=== PATIENT | male | born 1970 | race African-American/Black ===

== ENCOUNTER 2017-09-26 12:31 | Inpatient (IN) | payer OTHER ==
[2017-09-26 13:45] VITALS: BMI 48.4
--- NOTE | 2017-09-26 16:37 | HP ---
Admission [facility] - [facility] Chief Complaint: ETOH, Cocaine Rehab Allergies/Adverse Reactions: Allergies Allergy/AdvReac Type Severity Reaction Status Date / Time No Known Allergies Allergy Verified 09/26/17 15:27 History of Present Illness: 47 yo male with hx of alcohol, IV heroin, nicotine and cocaine dependence is here seeking rehab. [facility] Lakshmi De Jesus on Methadone 150mg, last medicated today. PMHX: cataract bilateral, Scoliosis, HTN, STV, anxiety and depression. Denies suicidal / homicidal ideation. Attempted suicide last year September 27 after the of his father by hanging. Last detox [facility], Winter 2016. Reports no significant period of sobriety. Exam Limitations: No Limitations - Ebola screening Have you traveled outside of the country in the last 21 days: No (N) Have you had contact with anyone from an Ebola affected area: No Have you been sick,other than usual withdrawal symptoms: No Do you have a fever: No - Review of Systems Constitutional: Changes in sleep, Other (weight gain over 80 lbs, past 4-5 months) EENT: reports: See HPI, Cataracts (bilateral) Respiratory: reports: SOB with Exertion, Wheezing (at night) Cardiac: reports: No Symptoms Reported GI: reports: Diarrhea : reports: No Symptoms Reported Musculoskeletal: reports: Back Pain Integumentary: reports: No Symptoms Reported Neuro: reports: No Symptoms reported Endocrine: reports: Increased Thirst Hematology: reports: Other (Sickle Cell Trait) Psychiatric: reports: Orientated x3, Depressed Other Systems: Reviewed and Negative Patient History - Patient Medical History Hx Anemia: No Hx Asthma: No Hx Chronic Obstructive Pulmonary Disease (COPD): No Hx Cancer: No Hx Cardiac Disorders: Yes (SVT ) Hx Congestive Heart Failure: No Hx Hypertension: Yes (on meds) Hx Hypercholesterolemia: Yes (on meds) Hx Pacemaker: No HX Cerebrovascular Accident: No Hx Seizures: No Hx Dementia: No Hx Diabetes: No Hx Gastrointestinal Disorders: No Hx Liver Disease: No Hx Genitourinary Disorders: No Hx Sexually Transmitted Disorders: No Hx Renal Disease (ESRD): No Hx Thyroid Disease: No Hx Human Immunodeficiency Virus (HIV): No (negative, last tested one year ago ) Hx Hepatitis C: No Hx Depression: Yes Hx Suicide Attempt: Yes (September 27, 2016 by hanging ) Hx Bipolar Disorder: Yes Hx Schizophrenia: No - Patient Surgical History Past Surgical History: Yes Hx Neurologic Surgery: No Hx Cataract Extraction: Yes (bilateral catarats 2013) Hx Cardiac Surgery: No Hx Lung Surgery: No Hx Breast Surgery: No Hx Breast Biopsy: No Hx Abdominal Surgery: No Hx Appendectomy: No Hx Cholecystectomy: No Hx Genitourinary Surgery: No Hx Orthopedic Surgery: No Anesthesia Reaction: No - PPD History Previous Implant?: No Documented Results: Negative w/o proof PPD to be Administered?: Yes - Smoking Cessation Smoking history: Current every day smoker Have you smoked in the past 12 months: Yes Aproximately how many cigarettes per day: 20 Hx Chewing Tobacco Use: No Initiated information on smoking cessation: Yes 'Breaking Loose' booklet given: 09/26/17 - Substance & Tx. History Hx Alcohol Use: Yes Hx Substance Use: Yes Substance Use Type: Alcohol, Cocaine, Heroin Hx Substance Use Treatment: Yes (Last detox [facility], Winter 2016.) - Substances Abused Heroin Route: Inhalation Frequency: Daily Amount used: 10-15 BAGS DAILY Age of first use: 21 Date of Last Use: 09/26/17 Cocaine Route: Inhalation Frequency: 1-3 times last 30 days Amount used: $100 Age of first use: 21 Date of Last Use: 09/12/17 Alcohol Route: Oral Frequency: 3-6 times per week Amount used: 1 6 PACK OF BEER DAILY, 1 PINT OF VODKA Age of first use: 20 Date of Last Use: 09/26/17 Family Disease History - Family Disease History Family Disease History: Heart Disease: Father (, CHF), Other: Father, Mother (, HIV, Liver Cirrhosis ) Admission Physical Exam [facility] - Vital Signs Vital Signs: Vital Signs - 24 hr 09/26/17 13:35 Pulse Rate 90 Respiratory 18 Rate Blood Pressure 136/76 - Physical General Appearance: Yes: Nourished, Disheveled, Obese, Anxious HEENTM: Yes: EOMI, Hearing grossly Normal, Normal ENT Inspection, Normocephalic , Normal Voice, MELISSA, Pharynx Normal, Tm's normal Respiratory: Yes: Chest Non-Tender, Lungs Clear, Normal Breath Sounds, No Respiratory Distress, No Accessory Muscle Use Neck: Yes: Trachea in good position Breast: Yes: Breast Exam Deferred Cardiology: Yes: Within Normal Limits Abdominal: Yes: Non Tender, Soft, Protuberent Genitourinary: Yes: Within Normal Limits Back: Yes: Normal Inspection Musculoskeletal: Yes: full range of Motion, Gait Steady, Pelvis Stable, Back pain Extremities: Yes: Normal Inspection, Normal Range of Motion, Non-Tender 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, Fully Oriented, Alert, Motor Strength 5/5, Normal Mood/Affect, Depressed Affect Integumentary: Yes: Normal Color, Warm, Track Mckeon (no signs of infection) Lymphatic: Yes: Within Normal Limits - Diagnostic (1) Hx of supraventricular tachycardia Current Visit: Yes Status: Chronic (2) Hypertension Current Visit: Yes Status: Chronic Qualifiers: Hypertension type: essential hypertension Qualified Code(s): I10 - Essential (primary) hypertension (3) Morbid obesity Current Visit: Yes Status: Chronic (4) Opioid dependence on agonist therapy Current Visit: Yes Status: Chronic Comment: on methadone 150 mg qd, dose pending verification (5) IV drug user Current Visit: Yes Status: Chronic (6) Cocaine dependence Current Visit: Yes Status: Acute Qualifiers: Substance use status: uncomplicated Qualified Code(s): F14.20 - Cocaine dependence, uncomplicated (7) Hyperlipidemia Current Visit: Yes Status: Chronic Qualifiers: Hyperlipidemia type: unspecified Qualified Code(s): E78.5 - Hyperlipidemia , unspecified (8) Depressed mood Current Visit: Yes Status: Acute (9) Psychiatric disorder Current Visit: Yes Status: Acute (10) Back pain Current Visit: Yes Status: Chronic Qualifiers: Back pain location: low back pain Back pain laterality: midline Sciatica presence: without sciatica [facility] Breath Alcohol Content Breath Alcohol Content: 0 Urine Drug Screen - Results Drug Screen Negative: Yes Urine Drug Screen Results: OPI-Opiates, MTD-Methadone Inpatient Rehab Admission - Initial Determination Are CD services needed?: Yes Free of communicable disease: Yes Not in need of hospitalization: Yes - Rehab Admission Criteria Previous failed treatment: Yes Poor recovery environment: Yes Comorbidities: Yes Lacks judgement: Yes Patient is meeting Inpatient Rehab admission criteria:: Yes
[2017-09-26] MEDS ORDERED: NICOTINE POLACRILEX 2 MG GUM BC PRN (16:56)
[2017-09-26] MEDS ORDERED: MENTHOL/PHENOL 1 EACH UD MM PRN (16:56)
[2017-09-26] MEDS ORDERED: guaiFENesin/D-METHORPHAN HB 10 ML UNIT-DOSE CUPS PO PRN (16:56)
[2017-09-26] MEDS ORDERED: IBUPROFEN 400 MG TABLET (FP) PO PRN (16:56)
[2017-09-26] MEDS ORDERED: ACETAMINOPHEN 325 MG TABLET (FP) PO PRN (16:56)
[2017-09-26] MEDS ORDERED: P-EPHED 60MG/TRIPROLIDI 2.5MG TABLET PO PRN (16:56)
[2017-09-26] MEDS ORDERED: MAG HYDROX/AL HYDROX/SIMETH 30 ML UNIT-DOSE CUP PO PRN (16:56)
[2017-09-26] MEDS ORDERED: LOPERAMIDE HCL 2 MG CAPSULE PO PRN (16:56)
[2017-09-26] MEDS ORDERED: VERAPAMIL HCL 120 MG E.R. TABLET PO SCH (18:00)
[2017-09-26] MEDS ORDERED: hydrOXYzine HCL 25 MG TABLET (FP) PO PRN (22:00)
[2017-09-26] MEDS: MELATONIN 5 MG TABLETS PO PRN (22:18)
[2017-09-26] MEDS: THIAMINE HCL 100 MG TABLET (FP) PO SCH (22:18)
[2017-09-26] MEDS: ASPIRIN 81 MG CHEWABLE TABLETS PO SCH (22:18)
[2017-09-26 23:18] LABS: URINE APPEARANCE CLEAR; URINE BILIRUBIN NEGATIVE (<2.0 mg/dL); URINE COLOR YELLOW; URINE GLUCOSE (UA) NEGATIVE (NEGATIVE); URINE KETONE NEGATIVE (NEGATIVE); URINE LEUK ESTERASE TRACE (NEGATIVE); URINE NITRITE NEGATIVE (NEGATIVE); URINE PROTEIN NEGATIVE (NEGATIVE)
[2017-09-26 23:32] LABS: EPI CELLS RARE /HPF (FEW); URINE MUCUS RARE
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
[2017-09-27] MEDS ORDERED: METHADONE HCL 10 MG TABLET PO SCH (08:00)
[2017-09-27] MEDS ORDERED: METHADONE HCL 40 MG DISPERSABLE TABLET ONE (08:04)
[2017-09-27] MEDS ORDERED: METHADONE HCL 10 MG TABLET ONE (08:04)
[2017-09-27] MEDS: METHADONE 120 MG, METHADONE 30 MG PO SCH (08:08)
[2017-09-27] MEDS: PRENATAL VITAMINS W/ FOLIC ACID TABLET (FP) PO SCH (09:37)
[2017-09-27] MEDS: ASPIRIN 81 MG CHEWABLE TABLETS PO SCH (09:37)
[2017-09-27] MEDS: SERTRALINE HCL 50 MG TABLET (FP) PO SCH (10:21)
[2017-09-27] MEDS: PERPHENAZINE 4 MG TABLET PO SCH ×2 (10:22→21:35)
[2017-09-27 10:24] LABS: HEMATOCRIT 38.7 % (35.4-49); HEMOGLOBIN 12.8 GM/dL (11.7-16.9); MCH 29.9 pg (25.7-33.7); MCHC 33.1 g/dl (32.0-35.9); MEAN CELL VOLUME 90.2 fl (80-96); MEAN PLT VOLUME 8.7 fl (7.5-11.1); PLATELET COUNT 186 K/MM3 (134-434); RBC 4.29 M/mm3 (4.00-5.60); RDW 14.4 % (11.9-15.9)
[2017-09-27] MEDS ORDERED: PT OWN MED DRAWER 7, Y5N ONE (10:30)
[2017-09-27 10:47] LABS: CHLORIDE 102 mmol/L (98-107); SODIUM 140 mmol/L (136-145)
[2017-09-27 11:19] LABS: ALBUMIN 3.2 g/dl (3.4-5.0); ALK PHOS 128 U/L (45-117); ANION GAP 8 (8-16); BILIRUBIN,TOTAL 0.3 mg/dL (0.2-1.0); BLOOD UREA NITROGEN 12 mg/dL (7-18); CALCIUM 8.5 mg/dL (8.5-10.1); CO2 30 mmol/L (21-32); CREATININE 0.8 mg/dL (0.7-1.3); GLUCOSE,RANDOM 110 mg/dL (74-106); SGOT/AST 18 U/L (15-37); SGPT/ALT 34 U/L (12-78); TOT PROT 6.9 g/dl (6.4-8.2)
[2017-09-27] MEDS: THIAMINE HCL 100 MG TABLET (FP) PO SCH (21:35)
[2017-09-27] MEDS: traZODone HCL 50 MG TABLET (FP) PO SCH (21:35)
[2017-09-28] MEDS ORDERED: METHADONE HCL 10 MG TABLET ONE (03:55)
[2017-09-28] MEDS ORDERED: METHADONE HCL 40 MG DISPERSABLE TABLET ONE (03:56)
[2017-09-28] MEDS: METHADONE 120 MG, METHADONE 30 MG PO SCH (06:05)
[2017-09-28] MEDS: PRENATAL VITAMINS W/ FOLIC ACID TABLET (FP) PO SCH (09:29)
[2017-09-28] MEDS: PERPHENAZINE 4 MG TABLET PO SCH ×2 (09:29→21:14)
[2017-09-28] MEDS: ASPIRIN 81 MG CHEWABLE TABLETS PO SCH (09:29)
[2017-09-28] MEDS: SERTRALINE HCL 50 MG TABLET (FP) PO SCH (09:29)
[2017-09-28] MEDS ORDERED: PT OWN MED DRAWER 7, Y5N ONE (09:30)
--- NOTE | 2017-09-28 14:51 | EKG ---
Test Reason : Blood Pressure : / mmHG Vent. Rate : 067 BPM Atrial Rate : 067 BPM P-R Int : 152 ms QRS Dur : 094 ms QT Int : 426 ms P-R-T Axes : 065 060 027 degrees QTc Int : 450 ms NORMAL SINUS RHYTHM WITH SINUS ARRHYTHMIA NORMAL ECG WHEN COMPARED WITH ECG OF 27-SEP-2017 05:57, PREVIOUS ECG HAS UNDETERMINED RHYTHM, NEEDS REVIEW Confirmed by MD Walker, Charles ([id number]) on 09/28/2017 2:51:15 PM Referred By: Confirmed By:Charles Cardoso MD
[2017-09-28] MEDS: traZODone HCL 50 MG TABLET (FP) PO SCH (21:14)
[2017-09-28] MEDS: THIAMINE HCL 100 MG TABLET (FP) PO SCH (21:14)
[2017-09-29] MEDS ORDERED: METHADONE HCL 10 MG TABLET ONE (03:19)
[2017-09-29] MEDS ORDERED: METHADONE HCL 40 MG DISPERSABLE TABLET ONE (03:20)
[2017-09-29] MEDS: METHADONE 120 MG, METHADONE 30 MG PO SCH (06:14)
[2017-09-29] MEDS ORDERED: PT OWN MED DRAWER 7, Y5N ONE (08:26)
[2017-09-29] MEDS: SERTRALINE HCL 50 MG TABLET (FP) PO SCH (09:28)
[2017-09-29] MEDS: ASPIRIN 81 MG CHEWABLE TABLETS PO SCH (09:28)
[2017-09-29] MEDS: PERPHENAZINE 4 MG TABLET PO SCH ×2 (09:28→23:07)
[2017-09-29] MEDS: PRENATAL VITAMINS W/ FOLIC ACID TABLET (FP) PO SCH (09:28)
[2017-09-29] MEDS: MAGNESIUM HYDROX 2400MG/30ML ORAL SUSPENSION 30 ML CUP PO PRN (11:28)
[2017-09-29] MEDS ORDERED: cloNIDine HCL 0.1 MG TABLET PO ONE (15:49)
--- NOTE | 2017-09-29 15:51 | PN ---
[facility] Progress Note Note: Vital Signs Temperature 97.4 F L 09/29/17 06:49 Pulse Rate 77 09/29/17 15:49 Respiratory Rate 18 09/29/17 06:49 Blood Pressure 165/80 09/29/17 15:49 O2 Sat by Pulse Oximetry (%) constipated clonidine 0.1 mg po now bp monitoring citroma close monitoring
[2017-09-29] MEDS: MAGNESIUM CITRATE 300 ML BOTTLE PO PRN (16:01)
--- NOTE | 2017-09-29 19:42 | PN ---
[facility] Progress Note Note: patient complained of left precordial pain 4 to 6,no radiation no sweating,constipation history of htn,svt,heroin dependence,mmtp 150 mgs/day,cocaine dependence,smoke 1 pack/day father of heart attack bp 157/97,p82,r18 pulse ox 92% heent normal neck supplle,no jvd heart normal heart sound,s1s2 lung clear,no wheezing,no crepitation abdomen soft,slight distension,no pain or tenderness bowel sound active no calf tenderness ekg nsr,incomplete bbbr impression chest pain opioid dependence mmtp 150 mgs/day cocaine dependence nicotine dependence hypertension constipation history of svt anxiety,depression,insomnia treatment asa 162 mgs po now to er for evaluation case endorsed to DR Dorian Baum in er at [facility] patient will be transported by [facility]
[2017-09-29] MEDS ORDERED: ASPIRIN 81 MG CHEWABLE TABLETS PO ONE (19:45)
[2017-09-29] MEDS: DOCUSATE SODIUM 100 MG CAPSULE (FP) PO SCH (23:07)
[2017-09-29] MEDS: traZODone HCL 50 MG TABLET (FP) PO SCH (23:07)
[2017-09-29] MEDS: THIAMINE HCL 100 MG TABLET (FP) PO SCH (23:07)
[2017-09-30] MEDS ORDERED: METHADONE HCL 40 MG DISPERSABLE TABLET ONE (03:11)
[2017-09-30] MEDS ORDERED: METHADONE HCL 10 MG TABLET ONE (03:11)
[2017-09-30] MEDS: METHADONE 120 MG, METHADONE 30 MG PO SCH (06:14)
[2017-09-30] MEDS: DOCUSATE SODIUM 100 MG CAPSULE (FP) PO SCH ×3 (06:15→21:55)
[2017-09-30] MEDS ORDERED: PT OWN MED DRAWER 7, Y5N ONE (08:42)
--- NOTE | 2017-09-30 08:51 | EKG ---
Test Reason : Blood Pressure : / mmHG Vent. Rate : 072 BPM Atrial Rate : 072 BPM P-R Int : 154 ms QRS Dur : 106 ms QT Int : 412 ms P-R-T Axes : 034 061 022 degrees QTc Int : 451 ms NORMAL SINUS RHYTHM INCOMPLETE RIGHT BUNDLE BRANCH BLOCK BORDERLINE ECG WHEN COMPARED WITH ECG OF 27-SEP-2017 06:05, NO SIGNIFICANT CHANGE WAS FOUND Confirmed by REX CACERES MD ([id number]) on 09/30/2017 8:51:14 AM Referred By: Confirmed By:REX CACERES MD
[2017-09-30] MEDS: PERPHENAZINE 4 MG TABLET PO SCH ×2 (09:41→21:54)
[2017-09-30] MEDS: SERTRALINE HCL 50 MG TABLET (FP) PO SCH (09:41)
[2017-09-30] MEDS: PRENATAL VITAMINS W/ FOLIC ACID TABLET (FP) PO SCH (09:41)
[2017-09-30] MEDS: ASPIRIN 81 MG CHEWABLE TABLETS PO SCH (09:41)
[2017-09-30] MEDS: THIAMINE HCL 100 MG TABLET (FP) PO SCH (21:54)
[2017-09-30] MEDS: traZODone HCL 50 MG TABLET (FP) PO SCH (21:55)
[2017-10-01] MEDS ORDERED: METHADONE HCL 10 MG TABLET ONE (04:34)
[2017-10-01] MEDS ORDERED: METHADONE HCL 40 MG DISPERSABLE TABLET ONE (04:35)
[2017-10-01] MEDS: DOCUSATE SODIUM 100 MG CAPSULE (FP) PO SCH ×3 (06:03→21:08)
[2017-10-01] MEDS: METHADONE 120 MG, METHADONE 30 MG PO SCH (06:03)
[2017-10-01] MEDS: PRENATAL VITAMINS W/ FOLIC ACID TABLET (FP) PO SCH (09:30)
[2017-10-01] MEDS: ASPIRIN 81 MG CHEWABLE TABLETS PO SCH (09:30)
[2017-10-01] MEDS: SERTRALINE HCL 50 MG TABLET (FP) PO SCH (09:30)
[2017-10-01] MEDS: PERPHENAZINE 4 MG TABLET PO SCH ×2 (09:30→21:08)
[2017-10-01] MEDS: traZODone HCL 50 MG TABLET (FP) PO SCH (21:08)
[2017-10-01] MEDS: THIAMINE HCL 100 MG TABLET (FP) PO SCH (21:08)
[2017-10-02] MEDS ORDERED: METHADONE HCL 40 MG DISPERSABLE TABLET ONE (04:40)
[2017-10-02] MEDS ORDERED: METHADONE HCL 10 MG TABLET ONE (04:40)
[2017-10-02] MEDS: METHADONE 120 MG, METHADONE 30 MG PO SCH (06:15)
[2017-10-02] MEDS: DOCUSATE SODIUM 100 MG CAPSULE (FP) PO SCH ×3 (06:16→21:07)
[2017-10-02] MEDS: PRENATAL VITAMINS W/ FOLIC ACID TABLET (FP) PO SCH (09:39)
[2017-10-02] MEDS: PERPHENAZINE 4 MG TABLET PO SCH ×2 (09:39→21:07)
[2017-10-02] MEDS: SERTRALINE HCL 50 MG TABLET (FP) PO SCH (09:39)
[2017-10-02] MEDS: ASPIRIN 81 MG CHEWABLE TABLETS PO SCH (09:39)
[2017-10-02] MEDS: MAGNESIUM HYDROX 2400MG/30ML ORAL SUSPENSION 30 ML CUP PO PRN (09:42)
[2017-10-02] MEDS: THIAMINE HCL 100 MG TABLET (FP) PO SCH (21:07)
[2017-10-02] MEDS: traZODone HCL 50 MG TABLET (FP) PO SCH (21:07)
[2017-10-03] MEDS ORDERED: METHADONE HCL 10 MG TABLET ONE (04:07)
[2017-10-03] MEDS ORDERED: METHADONE HCL 40 MG DISPERSABLE TABLET ONE (04:07)
[2017-10-03] MEDS: PERPHENAZINE 4 MG TABLET PO SCH ×2 (09:37→21:42)
[2017-10-03] MEDS: PRENATAL VITAMINS W/ FOLIC ACID TABLET (FP) PO SCH (09:37)
[2017-10-03] MEDS: SERTRALINE HCL 50 MG TABLET (FP) PO SCH (09:37)
[2017-10-03] MEDS: ASPIRIN 81 MG CHEWABLE TABLETS PO SCH (09:37)
[2017-10-03] MEDS: DOCUSATE SODIUM 100 MG CAPSULE (FP) PO SCH ×3 (09:40→21:42)
[2017-10-03] MEDS: METHADONE 120 MG, METHADONE 30 MG PO SCH (09:40)
[2017-10-03] MEDS: THIAMINE HCL 100 MG TABLET (FP) PO SCH (21:42)
[2017-10-03] MEDS: traZODone HCL 50 MG TABLET (FP) PO SCH (21:42)
[2017-10-03] MEDS: MELATONIN 5 MG TABLETS PO PRN (21:43)
[2017-10-04] MEDS ORDERED: METHADONE HCL 10 MG TABLET ONE (03:20)
[2017-10-04] MEDS ORDERED: METHADONE HCL 40 MG DISPERSABLE TABLET ONE (03:20)
[2017-10-04] MEDS: DOCUSATE SODIUM 100 MG CAPSULE (FP) PO SCH ×3 (06:17→21:30)
[2017-10-04] MEDS: METHADONE 120 MG, METHADONE 30 MG PO SCH (06:18)
[2017-10-04] MEDS: SERTRALINE HCL 50 MG TABLET (FP) PO SCH (09:24)
[2017-10-04] MEDS: PERPHENAZINE 4 MG TABLET PO SCH ×2 (09:24→21:30)
[2017-10-04] MEDS: PRENATAL VITAMINS W/ FOLIC ACID TABLET (FP) PO SCH (09:24)
[2017-10-04] MEDS: ASPIRIN 81 MG CHEWABLE TABLETS PO SCH (09:24)
[2017-10-04] MEDS: MAGNESIUM CITRATE 300 ML BOTTLE PO PRN (09:28)
--- NOTE | 2017-10-04 14:30 | PN ---
S Progress Note Note: Patient seen for c/o constipation and sleepiness and sedation from current Methadone dose. Patient is alert and oriented x 3. In NAD. Medically stable. Requesting to decrease current dose of MTD. Will order Methadone 140mg daily starting tomorrow morning. Continue to monitor clinically.
[2017-10-04] MEDS: THIAMINE HCL 100 MG TABLET (FP) PO SCH (21:31)
[2017-10-04] MEDS: traZODone HCL 50 MG TABLET (FP) PO SCH (21:32)
[2017-10-04] MEDS: MELATONIN 5 MG TABLETS PO PRN (21:32)
[2017-10-05] MEDS ORDERED: METHADONE HCL 10 MG TABLET ONE (05:59)
[2017-10-05] MEDS ORDERED: METHADONE HCL 40 MG DISPERSABLE TABLET ONE (06:00)
[2017-10-05] MEDS ORDERED: METHADONE HCL 40 MG DISPERSABLE TABLET PO SCH (06:00)
[2017-10-05] MEDS: DOCUSATE SODIUM 100 MG CAPSULE (FP) PO SCH ×3 (06:19→21:09)
[2017-10-05] MEDS: METHADONE 120 MG, METHADONE 20 MG PO SCH (06:19)
[2017-10-05] MEDS: SERTRALINE HCL 50 MG TABLET (FP) PO SCH (09:19)
[2017-10-05] MEDS: ASPIRIN 81 MG CHEWABLE TABLETS PO SCH (09:19)
[2017-10-05] MEDS: PRENATAL VITAMINS W/ FOLIC ACID TABLET (FP) PO SCH (09:19)
[2017-10-05] MEDS: PERPHENAZINE 4 MG TABLET PO SCH ×2 (09:19→21:09)
[2017-10-05] MEDS: traZODone HCL 50 MG TABLET (FP) PO SCH (21:09)
[2017-10-05] MEDS: THIAMINE HCL 100 MG TABLET (FP) PO SCH (21:09)
[2017-10-05] MEDS: MELATONIN 5 MG TABLETS PO PRN (21:10)
[2017-10-06] MEDS ORDERED: METHADONE HCL 40 MG DISPERSABLE TABLET ONE (03:09)
[2017-10-06] MEDS ORDERED: METHADONE HCL 10 MG TABLET ONE (03:09)
[2017-10-06] MEDS: METHADONE 120 MG, METHADONE 20 MG PO SCH (06:09)
[2017-10-06] MEDS: DOCUSATE SODIUM 100 MG CAPSULE (FP) PO SCH ×3 (06:09→21:41)
[2017-10-06] MEDS ORDERED: PT OWN MED DRAWER 7, Y5N ONE (08:30)
[2017-10-06] MEDS: ASPIRIN 81 MG CHEWABLE TABLETS PO SCH (09:35)
[2017-10-06] MEDS: SERTRALINE HCL 50 MG TABLET (FP) PO SCH (09:35)
[2017-10-06] MEDS: PRENATAL VITAMINS W/ FOLIC ACID TABLET (FP) PO SCH (09:35)
[2017-10-06] MEDS: PERPHENAZINE 4 MG TABLET PO SCH ×2 (09:35→21:41)
[2017-10-06] MEDS: traZODone HCL 50 MG TABLET (FP) PO SCH (21:41)
[2017-10-06] MEDS: THIAMINE HCL 100 MG TABLET (FP) PO SCH (21:41)
[2017-10-07] MEDS ORDERED: METHADONE HCL 40 MG DISPERSABLE TABLET ONE (04:02)
[2017-10-07] MEDS ORDERED: METHADONE HCL 10 MG TABLET ONE (04:02)
[2017-10-07] MEDS: METHADONE 120 MG, METHADONE 20 MG PO SCH (06:16)
[2017-10-07] MEDS: DOCUSATE SODIUM 100 MG CAPSULE (FP) PO SCH ×3 (06:17→21:10)
[2017-10-07] MEDS ORDERED: PT OWN MED DRAWER 7, Y5N ONE (08:39)
[2017-10-07] MEDS: PRENATAL VITAMINS W/ FOLIC ACID TABLET (FP) PO SCH (10:00)
[2017-10-07] MEDS: SERTRALINE HCL 50 MG TABLET (FP) PO SCH (10:00)
[2017-10-07] MEDS: PERPHENAZINE 4 MG TABLET PO SCH ×2 (10:00→21:09)
[2017-10-07] MEDS: ASPIRIN 81 MG CHEWABLE TABLETS PO SCH (10:00)
[2017-10-07] MEDS: MAGNESIUM HYDROX 2400MG/30ML ORAL SUSPENSION 30 ML CUP PO PRN (15:44)
[2017-10-07] MEDS: traZODone HCL 50 MG TABLET (FP) PO SCH (21:09)
[2017-10-07] MEDS: THIAMINE HCL 100 MG TABLET (FP) PO SCH (21:09)
[2017-10-08] MEDS ORDERED: METHADONE HCL 10 MG TABLET ONE (04:23)
[2017-10-08] MEDS ORDERED: METHADONE HCL 40 MG DISPERSABLE TABLET ONE (04:24)
[2017-10-08] MEDS: METHADONE 120 MG, METHADONE 20 MG PO SCH (05:51)
[2017-10-08] MEDS: DOCUSATE SODIUM 100 MG CAPSULE (FP) PO SCH ×3 (05:52→21:08)
[2017-10-08] MEDS: SERTRALINE HCL 50 MG TABLET (FP) PO SCH (09:49)
[2017-10-08] MEDS: PERPHENAZINE 4 MG TABLET PO SCH ×2 (09:49→21:08)
[2017-10-08] MEDS: PRENATAL VITAMINS W/ FOLIC ACID TABLET (FP) PO SCH (09:50)
[2017-10-08] MEDS: MAGNESIUM CITRATE 300 ML BOTTLE PO PRN (09:50)
[2017-10-08] MEDS: ASPIRIN 81 MG CHEWABLE TABLETS PO SCH (09:50)
[2017-10-08] MEDS: THIAMINE HCL 100 MG TABLET (FP) PO SCH (21:08)
[2017-10-08] MEDS: traZODone HCL 50 MG TABLET (FP) PO SCH (21:08)
[2017-10-09] MEDS ORDERED: METHADONE HCL 10 MG TABLET ONE (03:59)
[2017-10-09] MEDS ORDERED: METHADONE HCL 40 MG DISPERSABLE TABLET ONE (04:00)
[2017-10-09] MEDS: DOCUSATE SODIUM 100 MG CAPSULE (FP) PO SCH ×3 (06:15→21:19)
[2017-10-09] MEDS: METHADONE 120 MG, METHADONE 20 MG PO SCH (06:15)
[2017-10-09] MEDS: ASPIRIN 81 MG CHEWABLE TABLETS PO SCH (09:38)
[2017-10-09] MEDS: SERTRALINE HCL 50 MG TABLET (FP) PO SCH (09:38)
[2017-10-09] MEDS: PERPHENAZINE 4 MG TABLET PO SCH ×2 (09:39→21:19)
[2017-10-09] MEDS: PRENATAL VITAMINS W/ FOLIC ACID TABLET (FP) PO SCH (09:39)
[2017-10-09] MEDS: THIAMINE HCL 100 MG TABLET (FP) PO SCH (21:19)
[2017-10-09] MEDS: traZODone HCL 50 MG TABLET (FP) PO SCH (21:19)
[2017-10-10] MEDS ORDERED: METHADONE HCL 10 MG TABLET ONE (03:13)
[2017-10-10] MEDS ORDERED: METHADONE HCL 40 MG DISPERSABLE TABLET ONE (03:13)
[2017-10-10] MEDS: DOCUSATE SODIUM 100 MG CAPSULE (FP) PO SCH ×3 (06:11→21:15)
[2017-10-10] MEDS: METHADONE 120 MG, METHADONE 20 MG PO SCH (06:12)
[2017-10-10] MEDS: SERTRALINE HCL 50 MG TABLET (FP) PO SCH (09:32)
[2017-10-10] MEDS: PRENATAL VITAMINS W/ FOLIC ACID TABLET (FP) PO SCH (09:32)
[2017-10-10] MEDS: ASPIRIN 81 MG CHEWABLE TABLETS PO SCH (09:32)
[2017-10-10] MEDS: PERPHENAZINE 4 MG TABLET PO SCH ×2 (09:32→21:15)
[2017-10-10] MEDS ORDERED: PT OWN MED DRAWER 7, Y5N ONE (09:33)
[2017-10-10] MEDS: MAGNESIUM HYDROX 2400MG/30ML ORAL SUSPENSION 30 ML CUP PO PRN (15:04)
[2017-10-10] MEDS: THIAMINE HCL 100 MG TABLET (FP) PO SCH (21:15)
[2017-10-10] MEDS: traZODone HCL 50 MG TABLET (FP) PO SCH (21:15)
[2017-10-11] MEDS ORDERED: METHADONE HCL 10 MG TABLET ONE (04:14)
[2017-10-11] MEDS ORDERED: METHADONE HCL 40 MG DISPERSABLE TABLET ONE (04:15)
[2017-10-11] MEDS: DOCUSATE SODIUM 100 MG CAPSULE (FP) PO SCH ×3 (06:02→21:20)
[2017-10-11] MEDS: METHADONE 120 MG, METHADONE 20 MG PO SCH (06:02)
[2017-10-11] MEDS: PRENATAL VITAMINS W/ FOLIC ACID TABLET (FP) PO SCH (09:42)
[2017-10-11] MEDS: ASPIRIN 81 MG CHEWABLE TABLETS PO SCH (09:42)
[2017-10-11] MEDS: SERTRALINE HCL 50 MG TABLET (FP) PO SCH (09:43)
[2017-10-11] MEDS: PERPHENAZINE 4 MG TABLET PO SCH ×2 (09:45→21:20)
[2017-10-11] MEDS: MAGNESIUM CITRATE 300 ML BOTTLE PO PRN (09:45)
[2017-10-11] MEDS: traZODone HCL 50 MG TABLET (FP) PO SCH (21:20)
[2017-10-11] MEDS: THIAMINE HCL 100 MG TABLET (FP) PO SCH (21:20)
[2017-10-12] MEDS ORDERED: METHADONE HCL 10 MG TABLET ONE (04:18)
[2017-10-12] MEDS ORDERED: METHADONE HCL 40 MG DISPERSABLE TABLET ONE (04:18)
[2017-10-12] MEDS: PRENATAL VITAMINS W/ FOLIC ACID TABLET (FP) PO SCH (09:40)
[2017-10-12] MEDS: ASPIRIN 81 MG CHEWABLE TABLETS PO SCH (09:40)
[2017-10-12] MEDS: SERTRALINE HCL 50 MG TABLET (FP) PO SCH (09:40)
[2017-10-12] MEDS: PERPHENAZINE 4 MG TABLET PO SCH ×2 (09:40→21:08)
[2017-10-12] MEDS: DOCUSATE SODIUM 100 MG CAPSULE (FP) PO SCH ×3 (09:41→21:08)
[2017-10-12] MEDS: METHADONE 120 MG, METHADONE 20 MG PO SCH (09:41)
[2017-10-12] MEDS: MAGNESIUM HYDROX 2400MG/30ML ORAL SUSPENSION 30 ML CUP PO PRN (09:44)
[2017-10-12] MEDS ORDERED: SODIUM PHOSPHATE/NA BIPHOS 133 ML ENEMA PR ONE (11:58)
[2017-10-12] MEDS: THIAMINE HCL 100 MG TABLET (FP) PO SCH (21:08)
[2017-10-12] MEDS: traZODone HCL 50 MG TABLET (FP) PO SCH (21:08)
[2017-10-13] MEDS ORDERED: METHADONE HCL 10 MG TABLET ONE (04:03)
[2017-10-13] MEDS ORDERED: METHADONE HCL 40 MG DISPERSABLE TABLET ONE (04:03)
[2017-10-13] MEDS: DOCUSATE SODIUM 100 MG CAPSULE (FP) PO SCH ×3 (06:05→21:12)
[2017-10-13] MEDS: METHADONE 120 MG, METHADONE 20 MG PO SCH (06:05)
[2017-10-13] MEDS: PERPHENAZINE 4 MG TABLET PO SCH ×2 (09:32→21:12)
[2017-10-13] MEDS: SERTRALINE HCL 50 MG TABLET (FP) PO SCH (09:32)
[2017-10-13] MEDS: PRENATAL VITAMINS W/ FOLIC ACID TABLET (FP) PO SCH (09:32)
[2017-10-13] MEDS: ASPIRIN 81 MG CHEWABLE TABLETS PO SCH (09:32)
[2017-10-13] MEDS: MAGNESIUM HYDROX 2400MG/30ML ORAL SUSPENSION 30 ML CUP PO PRN (09:33)
[2017-10-13] MEDS: traZODone HCL 50 MG TABLET (FP) PO SCH (21:12)
[2017-10-13] MEDS: THIAMINE HCL 100 MG TABLET (FP) PO SCH (21:12)
[2017-10-14] MEDS ORDERED: METHADONE HCL 40 MG DISPERSABLE TABLET ONE (03:12)
[2017-10-14] MEDS ORDERED: METHADONE HCL 10 MG TABLET ONE (03:12)
[2017-10-14] MEDS: DOCUSATE SODIUM 100 MG CAPSULE (FP) PO SCH ×3 (06:29→21:10)
[2017-10-14] MEDS: METHADONE 120 MG, METHADONE 20 MG PO SCH (06:29)
[2017-10-14] MEDS ORDERED: PT OWN MED DRAWER 7, Y5N ONE (08:22)
[2017-10-14] MEDS: PERPHENAZINE 4 MG TABLET PO SCH ×2 (10:07→21:09)
[2017-10-14] MEDS: ASPIRIN 81 MG CHEWABLE TABLETS PO SCH (10:07)
[2017-10-14] MEDS: PRENATAL VITAMINS W/ FOLIC ACID TABLET (FP) PO SCH (10:08)
[2017-10-14] MEDS: SERTRALINE HCL 50 MG TABLET (FP) PO SCH (10:08)
[2017-10-14] MEDS: MAGNESIUM HYDROX 2400MG/30ML ORAL SUSPENSION 30 ML CUP PO PRN (10:09)
[2017-10-14] MEDS: THIAMINE HCL 100 MG TABLET (FP) PO SCH (21:09)
[2017-10-14] MEDS: traZODone HCL 50 MG TABLET (FP) PO SCH (21:10)
[2017-10-15] MEDS ORDERED: METHADONE HCL 10 MG TABLET ONE (03:12)
[2017-10-15] MEDS ORDERED: METHADONE HCL 40 MG DISPERSABLE TABLET ONE (03:12)
[2017-10-15] MEDS: METHADONE 120 MG, METHADONE 20 MG PO SCH (06:08)
[2017-10-15] MEDS: DOCUSATE SODIUM 100 MG CAPSULE (FP) PO SCH ×3 (06:08→21:25)
[2017-10-15] MEDS: SERTRALINE HCL 50 MG TABLET (FP) PO SCH (10:09)
[2017-10-15] MEDS: PRENATAL VITAMINS W/ FOLIC ACID TABLET (FP) PO SCH (10:09)
[2017-10-15] MEDS: PERPHENAZINE 4 MG TABLET PO SCH ×2 (10:09→21:25)
[2017-10-15] MEDS: ASPIRIN 81 MG CHEWABLE TABLETS PO SCH (10:09)
[2017-10-15] MEDS: MAGNESIUM CITRATE 300 ML BOTTLE PO PRN (10:10)
--- NOTE | 2017-10-15 11:07 | PN ---
Psychiatric Progress Note Vital Signs: Vital Signs Period Temp Pulse Resp BP Sys/Mcfarlane Pulse Ox Last 24 Hr 97.9 F-98.1 F 94-101 18-20 125-148/63-85 Date of Session: 10/15/17 Chief Complaint:: Discharge Note HPI: Patient addressing Alcohol and Cocaine Dependence comorbid with Opioid Dependence on Agonist Therapy, Nicotine Dependence and Schizoaffective Disorder ROS: Back pain, H/O Supraventriculat tachycardia, HTN, HLD, Morbid obesity Current Medications: Active Medications Generic Name Dose Route Start Last Admin Trade Name Freq PRN Reason Stop Dose Admin Acetaminophen 650 mg 09/26/17 16:56 Tylenol - PO Q4H PRN FEVER Al Hydroxide/Mg Hydroxide 30 ml 09/26/17 16:56 Mylanta Oral Suspension - PO Q6H PRN DYSPEPSIA Aspirin 81 mg 09/26/17 17:45 10/15/17 10:09 Asa - PO 81 mg DAILY RICHARD Administration Diltiazem HCl 120 mg 09/26/17 18:00 10/15/17 10:10 Cardizem Cd - PO 120 mg DAILY RICHARD Administration Docusate Sodium 100 mg 09/29/17 22:00 10/15/17 06:08 Colace - PO 100 mg TID RICHARD Administration Eucalyptus/Menthol/Phenol/Sorbitol 1 each 09/26/17 16:56 Cepastat Lozenge - MM Q4H PRN SORE THROAT Guaifenesin 10 ml 09/26/17 16:56 Robitussin Dm - PO Q6H PRN COUGH Hydroxyzine HCl 50 mg 09/26/17 22:00 Atarax - PO HS PRN itch Ibuprofen 400 mg 09/26/17 16:56 Motrin - PO Q6H PRN Pain level 4-6 Loperamide HCl 4 mg 09/26/17 16:56 Imodium - PO Q6H PRN DIARRHEA Magnesium Citrate 300 ml 09/26/17 16:56 10/15/17 10:10 Citroma - PO 300 ml Q48H PRN Administration CONSTIPATION Magnesium Hydroxide 30 ml 09/26/17 16:56 10/14/17 10:09 Milk Of Magnesia - PO 30 ml DAILY PRN Administration CONSTIPATION Melatonin 5 mg 09/26/17 22:00 10/05/17 21:10 Melatonin PO 5 mg HS PRN Administration INSOMNIA Methadone HCl 120 mg/ 140 mg 10/11/17 06:00 10/15/17 06:08 Methadone HCl 20 mg PO 10/18/17 05:59 140 mg DAILY@0600 RICHARD Administration Nicotine Polacrilex 2 mg 09/26/17 16:56 Nicorette Gum - BC Q2H PRN NICOTINE REPLACEMENT RX Perphenazine 8 mg 09/27/17 10:00 10/15/17 10:09 Trilafon PO 8 mg BID RICHARD Administration Multivit/Folic Acid/Iron 1 tab 09/27/17 10:00 10/15/17 10:09 Vitamins (Sjr) - PO 1 tab DAILY RICHARD Administration Pseudoephedrine/Triprolidine 1 combo 09/26/17 16:56 Actifed - PO TID PRN NASAL CONGESTION Sertraline HCl 100 mg 09/27/17 10:00 10/15/17 10:09 Zoloft - PO 100 mg DAILY RICHARD Administration Thiamine HCl 100 mg 09/26/17 22:00 10/14/17 21:09 Vitamin B1 - PO 100 mg HS RICHARD Administration Trazodone HCl 50 mg 09/27/17 22:00 10/14/17 21:10 Desyrel - PO 50 mg HS RICHARD Administration Current Side Effect: No Lab tests ordered: Yes Lab tests reviewed: Yes Provider note:: Patient will complete this program on 10/16/17. He has met his treatment goals and will continue to address his issues in outpatient treatment at [facility]. He responded well to Zoloft 100 mg po daily, Trilafon 8 mg po BID and Trazadone 50 mg po HS. Scripts for 30 days supply of these medications will be electronically transmitted to [facility] [id number] [facility] [employer] Total face to face time:: 35 Mental Status Exam - Mental Status Exam Alert and Oriented to: Time, Place, Person Cognitive Function: Fair Patient Appearance: Well Groomed Mood: Hopeful, Euthymic Affect: Appropriate Patient Behavior: Cooperative Speech Pattern: Clear Voice Loudness: Normal Thought Process: Intact, Goal Oriented Thought Disorder: Not Present Hallucinations: Denies Suicidal Ideation: Denies Homicidal Ideation: Denies Insight/Judgement: Fair Sleep: Fair Appetite: Good Muscle strength/Tone: Normal Gait/Station: Normal Psychiatric Treatment Plan - Problem List (1) Alcohol dependence Current Visit: Yes (2) Cocaine dependence Current Visit: Yes Qualifiers: Substance use status: uncomplicated Qualified Code(s): F14.20 - Cocaine dependence, uncomplicated (3) Opioid dependence on agonist therapy Current Visit: Yes (4) Nicotine dependence Current Visit: Yes (5) Schizoaffective disorder Current Visit: Yes (6) Back pain Current Visit: Yes Qualifiers: Back pain location: low back pain Back pain laterality: midline Sciatica presence: without sciatica (7) Hx of supraventricular tachycardia Current Visit: Yes (8) Hyperlipidemia Current Visit: Yes Qualifiers: Hyperlipidemia type: unspecified Qualified Code(s): E78.5 - Hyperlipidemia , unspecified (9) Hypertension Current Visit: Yes Qualifiers: Hypertension type: essential hypertension Qualified Code(s): I10 - Essential (primary) hypertension (10) Morbid obesity Current Visit: Yes Initial treatment plan: Patient will be discharged tomorrow and referred to [facility] for outpatient treatment
--- NOTE | 2017-10-15 15:42 | PN ---
S Progress Note Note: Patient medically stable. Patient schedule for d/c tomorrow. Home meds sent to pharmacy. Patient to follow up with PMD 1-2 weeks upon d/c.
[2017-10-15] MEDS: traZODone HCL 50 MG TABLET (FP) PO SCH (21:25)
[2017-10-15] MEDS: THIAMINE HCL 100 MG TABLET (FP) PO SCH (21:25)
[2017-10-16] MEDS ORDERED: METHADONE HCL 10 MG TABLET ONE (03:57)
[2017-10-16] MEDS ORDERED: METHADONE HCL 40 MG DISPERSABLE TABLET ONE (03:57)
[2017-10-16] MEDS: DOCUSATE SODIUM 100 MG CAPSULE (FP) PO SCH (06:06)
[2017-10-16] MEDS: METHADONE 120 MG, METHADONE 20 MG PO SCH (06:06)
[2017-10-16 06:55] VITALS: BP 140/82; PULSE 92; TEMP 98.2
[2017-10-16] MEDS ORDERED: PT OWN MED DRAWER 7, Y5N ONE ×2 (08:45→09:23)
[2017-10-16] MEDS: PRENATAL VITAMINS W/ FOLIC ACID TABLET (FP) PO SCH (09:21)
[2017-10-16] MEDS: PERPHENAZINE 4 MG TABLET PO SCH (09:21)
[2017-10-16] MEDS: ASPIRIN 81 MG CHEWABLE TABLETS PO SCH (09:21)
[2017-10-16] MEDS: SERTRALINE HCL 50 MG TABLET (FP) PO SCH (09:21)
== END 2017-10-16 09:28 | disposition home or self-care (01) | DRG 772 ==
LOC: YASAS 12:31 → Y3W 17:24
PROVIDERS: ADMIT Psychiatry & Neurology Psychiatry; ATTEND Psychiatry & Neurology Psychiatry
PROC: HZ42ZZZ Group Counseling for Substance Abuse Treatment, Cognitive-Behavioral (ICD-10-PCS; principal; 2017-09-26)
DX: F11.20 Opioid dependence, uncomplicated (principal); F10.20 Alcohol dependence, uncomplicated; F14.20 Cocaine dependence, uncomplicated; F17.210 Nicotine dependence, cigarettes, uncomplicated; F41.8 Other specified anxiety disorders; F25.9 Schizoaffective disorder, unspecified; I10 Essential (primary) hypertension; M54.5 Low back pain; G89.29 Other chronic pain; E78.5 Hyperlipidemia, unspecified; E78.00 Pure hypercholesterolemia, unspecified; E66.01 Morbid (severe) obesity due to excess calories; Z68.42 Body mass index [BMI] 45.0-49.9, adult; Z86.79 Personal history of other diseases of the circulatory system
CPT/HCPCS: 36415; 80053; 81003; 81015; 85027; 86593; 87389; 93005; 93010; J0735

== ENCOUNTER 2021-06-05 05:54 | Inpatient (IN) | payer OTHER ==
[2021-06-02 09:43] VITALS: BMI 46.5
[2021-06-05] MEDS ORDERED: MIDAZOLAM HCL 2 MG/2 ML SINGLE DOSE VIAL ONE (07:10)
[2021-06-05] MEDS ORDERED: VANCOMYCIN 1,000 MG VIAL (RESTRICTED TO ID ONLY) ONE ×2 (07:27→08:19)
[2021-06-05] MEDS ORDERED: TRANEXAMIC ACID 1000 MG/10 ML VIAL ONE ×4 (07:28→11:04)
[2021-06-05] MEDS ORDERED: fentaNYL CITRATE 250 MCG/5 ML VIAL ONE (07:50)
[2021-06-05] MEDS ORDERED: PROPOFOL 20 ML ONE ×3 (07:50)
[2021-06-05] MEDS ORDERED: ROCURONIUM BROMIDE 50 MG/5 ML SYRINGE ONE ×2 (07:51→09:16)
[2021-06-05] MEDS ORDERED: SUCCINYLCHOLINE CHLORIDE 200 MG/10 ML SYRINGE ONE (07:51)
[2021-06-05] MEDS ORDERED: ceFAZolin SODIUM 1 GM VIAL ONE ×3 (08:19→19:35)
[2021-06-05] MEDS ORDERED: EPINEPHrine/PF 1 MG/1 ML (1:1,000) AMPULE ONE (09:33)
[2021-06-05] MEDS ORDERED: GLYCOPYRROLATE 0.2 MG/1 ML VIAL ONE ×2 (10:09→10:10)
[2021-06-05] MEDS ORDERED: NEOSTIGMINE METHYLSULFATE 0.5 MG/ML - 10 ML MDV ONE (10:09)
[2021-06-05] MEDS ORDERED: DESFLURANE GAS 240 ML BOTTLE IH ONE (10:20)
[2021-06-05] MEDS ORDERED: PROMETHAZINE HCL 25 MG/1 ML VIAL IVPUSH PRN (12:17)
[2021-06-05] MEDS ORDERED: MAG HYDROX/AL HYDROX/SIMETH 30 ML UNIT-DOSE CUP PO PRN (12:17)
[2021-06-05] MEDS ORDERED: ONDANSETRON 4 MG/2 ML VIAL IVPUSH PRN ×2 (12:17)
[2021-06-05] MEDS ORDERED: oxyCODONE HCL 5 MG TABLET PO PRN (12:17)
[2021-06-05] MEDS ORDERED: LACTATED RINGERS SOLUTION 1,000 ML IV SCH (12:30)
[2021-06-05] MEDS ORDERED: DEXTROSE 5%-WATER - 100 ML IVPB ONE ×2 (15:30→19:35)
[2021-06-05] MEDS: CEFAZOLIN 3 GM in DEXTROSE 5%-WATER - 100 ML IVPB SCH ×2 (15:44→20:04)
[2021-06-05] MEDS: oxyCODONE HCL 5 MG TABLET PO PRN ×2 (17:08→23:36)
[2021-06-05] MEDS: ACETAMINOPHEN 1000 MG/100 ML BAG IVPB SCH ×2 (18:06→23:31)
[2021-06-05] MEDS ORDERED: VANCOMYCIN 1 GM in D5W (PRE-DOCKED) 1,000 MG/250 ML IVPB ONE (20:00)
[2021-06-05] MEDS: CARVEDILOL 25 MG TABLET (FP) PO SCH (21:06)
[2021-06-05] MEDS: SENNOSIDES/DOCUSATE COMBO (SENNA PLUS) TABLET (UD) PO SCH (21:06)
[2021-06-06] MEDS ORDERED: DEXTROSE 5%-WATER - 100 ML IVPB ONE (02:23)
[2021-06-06] MEDS ORDERED: ceFAZolin SODIUM 1 GM VIAL ONE (02:23)
[2021-06-06] MEDS: CEFAZOLIN 3 GM in DEXTROSE 5%-WATER - 100 ML IVPB SCH (02:27)
[2021-06-06] MEDS: ACETAMINOPHEN 1000 MG/100 ML BAG IVPB SCH ×2 (04:58→11:54)
[2021-06-06] MEDS: oxyCODONE HCL 5 MG TABLET PO PRN ×4 (05:48→20:50)
[2021-06-06 08:08] LABS: CALCIUM 8.2 mg/dl (8.5-10); CREATININE 0.8 mg/dl (0.55-1.3)
[2021-06-06 08:32] LABS: HEMATOCRIT 34.2 % (35.4-49); HEMOGLOBIN 10.9 GM/dL (11.7-16.9); MCHC 31.7 g/dl (32.0-35.9); MEAN CELL VOLUME 91.5 fl (80-96); MEAN PLT VOLUME 8.4 fl (7.5-11.1); PLATELET COUNT 196 10^3/uL (134-434); RBC 3.74 M/mm3 (4.00-5.60); WHITE BLOOD COUNT 15.5 K/mm3 (4.0-10.0)
[2021-06-06] MEDS: PANTOPRAZOLE 40 MG TABLET PO SCH (09:33)
[2021-06-06] MEDS: SENNOSIDES/DOCUSATE COMBO (SENNA PLUS) TABLET (UD) PO SCH ×2 (09:33→21:19)
[2021-06-06] MEDS: CARVEDILOL 25 MG TABLET (FP) PO SCH ×2 (09:33→21:19)
[2021-06-06] MEDS: HYDROCHLOROTHIAZIDE 25 MG TABLET (FP) PO SCH (09:33)
[2021-06-06] MEDS: MULTIVITAMINS (DAILY MVI) TABLET (FP) PO SCH (09:33)
[2021-06-06] MEDS ORDERED: ASPIRIN 325 MG TABLET PO SCH (10:00)
[2021-06-06] MEDS ORDERED: ACETAMINOPHEN 325 MG TABLET (FP) PO SCH ×2 (14:00→14:01)
[2021-06-06] MEDS: ACETAMINOPHEN 325 MG TABLET (FP) PO SCH (18:20)
[2021-06-06] MEDS ORDERED: CELECOXIB 200 MG CAPSULE PO ONE (19:15)
[2021-06-06] MEDS ORDERED: HYDROmorphone HCl 2 MG/ML VIAL IVPUSH ONE (20:00)
[2021-06-06] MEDS: ASPIRIN 325 MG TABLET PO SCH (21:19)
[2021-06-07] MEDS: ACETAMINOPHEN 325 MG TABLET (FP) PO SCH ×2 (01:34→06:45)
[2021-06-07] MEDS: oxyCODONE HCL 5 MG TABLET PO PRN ×2 (03:34→09:25)
[2021-06-07 05:26] VITALS: PULSE 81
[2021-06-07 09:19] VITALS: BP 114/56; TEMP 98.7
[2021-06-07] MEDS: HYDROCHLOROTHIAZIDE 25 MG TABLET (FP) PO SCH (09:25)
[2021-06-07] MEDS: SENNOSIDES/DOCUSATE COMBO (SENNA PLUS) TABLET (UD) PO SCH (09:25)
[2021-06-07] MEDS: PANTOPRAZOLE 40 MG TABLET PO SCH (09:25)
[2021-06-07] MEDS: ASPIRIN 325 MG TABLET PO SCH (09:25)
[2021-06-07] MEDS: MULTIVITAMINS (DAILY MVI) TABLET (FP) PO SCH (09:25)
[2021-06-07] MEDS: CARVEDILOL 25 MG TABLET (FP) PO SCH (09:25)
[2021-06-07 10:59] LABS: HEMATOCRIT 33.9 % (35.4-49); HEMOGLOBIN 11.2 GM/dL (11.7-16.9); MCHC 33.1 g/dl (32.0-35.9); MEAN CELL VOLUME 90.4 fl (80-96); MEAN PLT VOLUME 8.6 fl (7.5-11.1); PLATELET COUNT 190 10^3/uL (134-434); RBC 3.75 M/mm3 (4.00-5.60); RDW 13.9 % (11.9-15.9); WHITE BLOOD COUNT 12.1 K/mm3 (4.0-10.0)
== END 2021-06-07 11:02 | disposition home or self-care (01) | DRG 322 ==
LOC: FM/S 05:54
PROVIDERS: ADMIT Orthopaedic Surgery; ATTEND Nurse Practitioner Acute Care
PROC: 0LS40ZZ Reposition Left Upper Arm Tendon, Open Approach (ICD-10-PCS; 2021-06-05)
PROC: 0RRK0JZ Replacement of Left Shoulder Joint with Synthetic Substitute, Open Approach (ICD-10-PCS; principal; 2021-06-05 08:41)
DX: M19.012 Primary osteoarthritis, left shoulder (principal); I47.1 Supraventricular tachycardia; I10 Essential (primary) hypertension; E78.5 Hyperlipidemia, unspecified; F17.210 Nicotine dependence, cigarettes, uncomplicated; M75.22 Bicipital tendinitis, left shoulder; E66.01 Morbid (severe) obesity due to excess calories; Z68.42 Body mass index [BMI] 45.0-49.9, adult
CPT/HCPCS: 36415; 73030-TC-LT-FY; 80048; 85027; 88305-TC; 88311-TC; 94760; 97010-GP; 97116-GP; 97161-GP

== ENCOUNTER 2023-02-08 10:09 | Inpatient (IN) | payer OTHER ==
[2023-02-08 10:34] VITALS: BMI 49.6
[2023-02-08] MEDS ORDERED: MAGNESIUM HYDROX 2400MG/30ML ORAL SUSPENSION 30 ML CUP PO PRN (13:43)
[2023-02-08] MEDS ORDERED: BENZOCAINE/MENTHOL (CHLORASEPTIC ) LOZENGE MM PRN (13:43)
[2023-02-08] MEDS ORDERED: IBUPROFEN 600 MG TABLET (FP) PO PRN (13:43)
[2023-02-08] MEDS ORDERED: NICOTINE POLACRILEX 2 MG GUM BUC PRN (13:43)
[2023-02-08] MEDS ORDERED: NALOXONE HCL (KLOXXADO) 8 MG SPRAY NS PRN (13:43)
[2023-02-08] MEDS ORDERED: LOPERAMIDE HCL 2 MG CAPSULE PO PRN (13:43)
[2023-02-08] MEDS ORDERED: ONDANSETRON *ODT* 4 MG TABLET SL PRN (13:43)
[2023-02-08] MEDS ORDERED: ACETAMINOPHEN 325 MG TABLET (FP) PO PRN (13:43)
[2023-02-08] MEDS ORDERED: BENZONATATE 200 MG CAPSULE PO PRN (13:43)
[2023-02-08] MEDS ORDERED: guaiFENesin 600 MG TABLET.ER (FP) PO PRN (13:43)
[2023-02-08] MEDS ORDERED: IBUPROFEN 400 MG TABLET (FP) PO PRN (13:43)
[2023-02-08] MEDS ORDERED: NALOXONE HCL 0.4 MG/ML VIAL IM PRN (13:43)
[2023-02-08] MEDS ORDERED: MAG HYDROX/AL HYDROX/SIMETH 30 ML UNIT-DOSE CUP PO PRN (13:43)
[2023-02-08] MEDS ORDERED: POLYETHYLENE GLYCOL (HEALTHYLAX) 3350 17 GM PACKET PO PRN (13:43)
[2023-02-08] MEDS ORDERED: BISMUTH SUBSALICYLATE 524 MG/30 ML PO PRN (13:43)
[2023-02-08] MEDS: MELATONIN 5 MG TABLETS PO SCH (22:25)
[2023-02-08] MEDS: THIAMINE HCL 100 MG TABLET (FP) PO SCH (22:25)
[2023-02-09] MEDS: PRENATAL VITAMINS W/ FOLIC ACID TABLET (FP) PO SCH (10:18)
[2023-02-09] MEDS: CARVEDILOL 25 MG TABLET (FP) PO SCH ×2 (10:18→22:22)
[2023-02-09] MEDS: ASPIRIN 81 MG CHEWABLE TABLETS PO SCH (10:18)
[2023-02-09] MEDS: NICOTINE 14 MG/24 HOURS TOPICAL PATCH TD SCH (10:18)
[2023-02-09] MEDS: HYDROCHLOROTHIAZIDE 25 MG TABLET (FP) PO SCH (10:18)
[2023-02-09] MEDS ORDERED: LORazepam 1 MG TABLET PO PRN (10:37)
[2023-02-09] MEDS: LORazepam 2 MG TABLET PO SCH ×3 (11:10→22:22)
[2023-02-09 12:20] LABS: HEMATOCRIT 40.7 % (35.4-49); MCH 30.6 pg (25.7-33.7); MCHC 34.3 g/dl (32.0-35.9); MEAN CELL VOLUME 89.3 fl (80-96); MEAN PLT VOLUME 8.7 fl (7.5-11.1); PLATELET COUNT 194 10^3/uL (134-434); RBC 4.57 M/mm3 (4.00-5.60); RDW 13.7 % (11.9-15.9); WHITE BLOOD COUNT 6.6 K/mm3 (4.0-10.0)
[2023-02-09 12:28] LABS: POTASSIUM 4.1 mmol/L (3.5-5.1)
[2023-02-09 12:39] LABS: CALCIUM 8.9 mg/dL (8.5-10.1)
[2023-02-09 12:40] LABS: ALBUMIN 3.9 g/dl (3.4-5.0); BLOOD UREA NITROGEN 13.2 mg/dL (7-18)
[2023-02-09 12:42] LABS: CREATININE 1.1 mg/dL (0.55-1.3)
[2023-02-09 12:44] LABS: BILIRUBIN,TOTAL 0.5 mg/dL (0.2-1); TOT PROT 8.1 g/dl (6.4-8.2)
[2023-02-09] MEDS: methaDONE HCL 10 MG TABLET PO SCH (13:26)
[2023-02-09] MEDS: DOCUSATE SODIUM 100 MG CAPSULE (FP) PO SCH (22:22)
[2023-02-09] MEDS: MELATONIN 5 MG TABLETS PO SCH (22:22)
[2023-02-09] MEDS: THIAMINE HCL 100 MG TABLET (FP) PO SCH (22:22)
[2023-02-10] MEDS: LORazepam 2 MG TABLET PO SCH ×4 (05:51→22:08)
[2023-02-10] MEDS: methaDONE HCL 10 MG TABLET PO SCH (05:51)
[2023-02-10] MEDS: NICOTINE 14 MG/24 HOURS TOPICAL PATCH TD SCH (10:14)
[2023-02-10] MEDS: CARVEDILOL 25 MG TABLET (FP) PO SCH ×2 (10:14→22:08)
[2023-02-10] MEDS: PRENATAL VITAMINS W/ FOLIC ACID TABLET (FP) PO SCH (10:14)
[2023-02-10] MEDS: HYDROCHLOROTHIAZIDE 25 MG TABLET (FP) PO SCH (10:14)
[2023-02-10] MEDS: ASPIRIN 81 MG CHEWABLE TABLETS PO SCH (10:14)
[2023-02-10] MEDS: DOCUSATE SODIUM 100 MG CAPSULE (FP) PO SCH (22:08)
[2023-02-10] MEDS: THIAMINE HCL 100 MG TABLET (FP) PO SCH (22:08)
[2023-02-10] MEDS: MELATONIN 5 MG TABLETS PO SCH (22:08)
[2023-02-11] MEDS: LORazepam 1 MG TABLET PO SCH ×4 (05:30→22:17)
[2023-02-11] MEDS ORDERED: methaDONE HCL 40 MG DISPERSABLE TABLET PO SCH (08:01)
[2023-02-11] MEDS ORDERED: methaDONE 40 MG, methaDONE 20 MG PO ONE (08:30)
[2023-02-11] MEDS: ASPIRIN 81 MG CHEWABLE TABLETS PO SCH (10:26)
[2023-02-11] MEDS: PRENATAL VITAMINS W/ FOLIC ACID TABLET (FP) PO SCH (10:27)
[2023-02-11] MEDS: HYDROCHLOROTHIAZIDE 25 MG TABLET (FP) PO SCH (10:27)
[2023-02-11] MEDS: NICOTINE 14 MG/24 HOURS TOPICAL PATCH TD SCH (10:27)
[2023-02-11] MEDS: CARVEDILOL 25 MG TABLET (FP) PO SCH ×2 (10:27→22:16)
[2023-02-11] MEDS: MELATONIN 5 MG TABLETS PO SCH (22:16)
[2023-02-11] MEDS: DOCUSATE SODIUM 100 MG CAPSULE (FP) PO SCH (22:16)
[2023-02-11] MEDS: THIAMINE HCL 100 MG TABLET (FP) PO SCH (22:16)
[2023-02-12] MEDS ORDERED: LORazepam 0.5 MG TABLET PO PRN
[2023-02-12] MEDS: LORazepam 0.5 MG TABLET PO SCH ×4 (05:36→22:11)
[2023-02-12] MEDS: methaDONE 40 MG, methaDONE 20 MG PO SCH (05:37)
[2023-02-12] MEDS: PRENATAL VITAMINS W/ FOLIC ACID TABLET (FP) PO SCH (10:38)
[2023-02-12] MEDS: CARVEDILOL 25 MG TABLET (FP) PO SCH ×2 (10:38→22:11)
[2023-02-12] MEDS: ASPIRIN 81 MG CHEWABLE TABLETS PO SCH (10:38)
[2023-02-12] MEDS: HYDROCHLOROTHIAZIDE 25 MG TABLET (FP) PO SCH (10:39)
[2023-02-12] MEDS: NICOTINE 14 MG/24 HOURS TOPICAL PATCH TD SCH (10:41)
[2023-02-12] MEDS: DOCUSATE SODIUM 100 MG CAPSULE (FP) PO SCH (22:11)
[2023-02-12] MEDS: MELATONIN 5 MG TABLETS PO SCH (22:11)
[2023-02-12] MEDS: THIAMINE HCL 100 MG TABLET (FP) PO SCH (22:11)
[2023-02-13] MEDS ORDERED: LORazepam 0.5 MG TABLET PO ONE (05:00)
[2023-02-13] MEDS: methaDONE 40 MG, methaDONE 20 MG PO SCH (05:55)
[2023-02-13 08:49] VITALS: BP 110/70; PULSE 74; RESP 16; TEMP 98.1
[2023-02-13] MEDS: NICOTINE 14 MG/24 HOURS TOPICAL PATCH TD SCH (09:10)
[2023-02-13] MEDS: ASPIRIN 81 MG CHEWABLE TABLETS PO SCH (09:10)
[2023-02-13] MEDS: PRENATAL VITAMINS W/ FOLIC ACID TABLET (FP) PO SCH (09:10)
[2023-02-13] MEDS: CARVEDILOL 25 MG TABLET (FP) PO SCH (09:10)
[2023-02-13] MEDS: HYDROCHLOROTHIAZIDE 25 MG TABLET (FP) PO SCH (09:10)
== END 2023-02-13 08:58 | disposition home or self-care (01) | DRG 773 ==
LOC: YASAS 10:09 → Y3N 14:43
PROVIDERS: ADMIT Allergy & Immunology; ATTEND Surgery
PROC: HZ2ZZZZ Detoxification Services for Substance Abuse Treatment (ICD-10-PCS; principal; 2023-02-08)
DX: F10.230 Alcohol dependence with withdrawal, uncomplicated (principal); F11.20 Opioid dependence, uncomplicated; F14.20 Cocaine dependence, uncomplicated; F17.210 Nicotine dependence, cigarettes, uncomplicated; F31.9 Bipolar disorder, unspecified; F20.9 Schizophrenia, unspecified; I10 Essential (primary) hypertension; E78.5 Hyperlipidemia, unspecified; E66.01 Morbid (severe) obesity due to excess calories; Z68.42 Body mass index [BMI] 45.0-49.9, adult; Z63.4 Disappearance and death of family member; Z86.19 Personal history of other infectious and parasitic diseases; Z87.19 Personal history of other diseases of the digestive system
CPT/HCPCS: 36415; 80053; 80307; 85027; 86780; 87635; 93005; 93010

== ENCOUNTER 2024-01-31 12:52 | Inpatient (IN) | payer OTHER ==
[2024-01-31 14:41] VITALS: BMI 46.8
[2024-01-31] MEDS ORDERED: ACETAMINOPHEN 325 MG TABLET (FP) PO PRN (15:31)
[2024-01-31] MEDS ORDERED: NICOTINE POLACRILEX 2 MG GUM BUC PRN (15:31)
[2024-01-31] MEDS ORDERED: NICOTINE POLACRILEX 2 MG LOZENGE BC PRN (15:31)
[2024-01-31] MEDS ORDERED: LOPERAMIDE HCL 2 MG CAPSULE PO PRN (15:31)
[2024-01-31] MEDS ORDERED: NALOXONE HCL 0.4 MG/ML VIAL IM PRN (15:31)
[2024-01-31] MEDS ORDERED: MAG HYDROX/AL HYDROX/SIMETH 30 ML UNIT-DOSE CUP PO PRN (15:31)
[2024-01-31] MEDS ORDERED: IBUPROFEN 400 MG TABLET (FP) PO PRN (15:31)
[2024-01-31] MEDS ORDERED: guaiFENesin 600 MG TABLET.ER (FP) PO PRN (15:31)
[2024-01-31] MEDS ORDERED: BENZONATATE 200 MG CAPSULE PO PRN (15:31)
[2024-01-31] MEDS ORDERED: BENZOCAINE/MENTHOL (CHLORASEPTIC ) LOZENGE MM PRN (15:31)
[2024-01-31] MEDS: THIAMINE 100 MG TABLET PO SCH (21:35)
[2024-01-31] MEDS: MELATONIN 5 MG TABLETS PO SCH (21:35)
[2024-02-01] MEDS: PRENATAL VITAMINS W/ FOLIC ACID TABLET (FP) PO SCH (09:17)
[2024-02-01] MEDS: methaDONE HCL 40 MG DISPERSABLE TABLET PO SCH (09:17)
[2024-02-01 09:47] LABS: HEMATOCRIT 36.1 % (35.4-49); MCH 30.3 pg (25.7-33.7); MCHC 33.4 g/dl (32.0-35.9); MEAN CELL VOLUME 90.8 fl (80-96); MEAN PLT VOLUME 8.8 fl (7.5-11.1); PLATELET COUNT 166 10^3/uL (134-434); RBC 3.97 M/mm3 (4.00-5.60); RDW 14.2 % (11.9-15.9); WHITE BLOOD COUNT 6.9 K/mm3 (4.0-10.0)
[2024-02-01 09:55] LABS: CHLORIDE 109 mmol/L (98-107); POTASSIUM 4.4 mmol/L (3.5-5.1); SODIUM 142 mmol/L (136-145)
[2024-02-01 10:05] LABS: ANION GAP 3 mmol/L (4-13); BLOOD UREA NITROGEN 12.2 mg/dL (7-18); CALCIUM 8.7 mg/dL (8.5-10.1); CO2 30 mmol/L (21-32); GLUCOSE,RANDOM 85 mg/dL (74-106); SGOT/AST 14 U/L (15-37); SGPT/ALT 17 U/L (13-61)
[2024-02-01 10:06] LABS: CREATININE 0.6 mg/dL (0.55-1.3)
[2024-02-01 10:07] LABS: BILIRUBIN,TOTAL 0.6 mg/dL (0.2-1); TOT PROT 6.4 g/dl (6.4-8.2)
[2024-02-01 10:08] LABS: ALK PHOS 97 U/L (45-117)
[2024-02-01 14:47] LABS: URINE APPEARANCE CLEAR; URINE BILIRUBIN NEGATIVE (NEGATIVE); URINE COLOR YELLOW; URINE GLUCOSE (UA) NEGATIVE (NEGATIVE); URINE KETONE NEGATIVE (NEGATIVE); URINE LEUK ESTERASE NEGATIVE (NEGATIVE); URINE NITRITE NEGATIVE (NEGATIVE); URINE PROTEIN NEGATIVE (NEGATIVE)
[2024-02-02] MEDS: ARIPiprazole 5 MG TABLET PO SCH (09:25)
[2024-02-05] MEDS: IBUPROFEN 600 MG TABLET (FP) PO PRN (09:30)
[2024-02-07] MEDS: MAGNESIUM HYDROX 2400MG/30ML ORAL SUSPENSION 30 ML CUP PO PRN (09:41)
[2024-02-08] MEDS: POLYETHYLENE GLYCOL (HEALTHYLAX) 3350 17 GM PACKET PO PRN (09:36)
[2024-02-09] MEDS: LACTULOSE 20 GM/30 ML UDC (FOR ORAL USE ONLY) PO ONE (12:31)
[2024-02-10] MEDS ORDERED: DOCUSATE SODIUM 100 MG CAPSULE (FP) PO PRN (15:49)
[2024-02-10] MEDS ORDERED: LACTULOSE 20 GM/30 ML UDC (FOR ORAL USE ONLY) PO PRN (15:50)
[2024-02-10] MEDS: GABAPENTIN 300 MG CAPSULE PO SCH (15:59)
[2024-02-10] MEDS: SODIUM PHOSPHATE/NA BIPHOS 133 ML ENEMA RC ONE (16:02)
[2024-02-10] MEDS: BACLOFEN 10 MG TABLET (FP) PO SCH (21:03)
[2024-02-12] MEDS: BISACODYL 10 MG SUPP.RECT PR PRN (21:06)
[2024-02-13 06:37] VITALS: BP 116/71; PULSE 81; RESP 16; TEMP 97.5
[2024-02-13] MEDS: NALOXONE (NYS OPIOID OVERDOSE PROGRAM) 4 MG/0.1 ML SPRAY NS PRN (10:39)
== END 2024-02-13 11:10 | disposition home or self-care (01) | DRG 772 ==
LOC: YASAS 12:52 → Y3NR 17:43 → Y5N 02-01 10:46
PROVIDERS: ADMIT Allergy & Immunology; ATTEND Psychiatry & Neurology Pain Medicine
PROC: HZ42ZZZ Group Counseling for Substance Abuse Treatment, Cognitive-Behavioral (ICD-10-PCS; principal; 2024-01-31)
DX: F10.20 Alcohol dependence, uncomplicated (principal); F14.20 Cocaine dependence, uncomplicated; F11.20 Opioid dependence, uncomplicated; F17.210 Nicotine dependence, cigarettes, uncomplicated; F31.9 Bipolar disorder, unspecified; F20.9 Schizophrenia, unspecified; F41.9 Anxiety disorder, unspecified; E78.5 Hyperlipidemia, unspecified; I11.0 Hypertensive heart disease with heart failure; I50.9 Heart failure, unspecified; K59.00 Constipation, unspecified; M25.562 Pain in left knee; R26.89 Other abnormalities of gait and mobility; Z99.89 Dependence on other enabling machines and devices
CPT/HCPCS: 36415; 80053; 80305; 80307; 81003; 82962; 85027; 86780; 87811; J0475

== ENCOUNTER 2024-03-18 19:17 | Observation (INO) | payer OTHER ==
[2024-03-18] MEDS ORDERED: VANCOMYCIN 1 GM PREMIX (F) 1 GM/200 ML BAG ONE (20:49)
[2024-03-18] MEDS ORDERED: PIPERACILLIN/TAZOB 4.5 GM 4.5 GM/100 ML BAG IVPB ONE (20:49)
[2024-03-18 21:27] LABS: BASO % 0.1 % (0-2.0); EOS % 0.7 % (0-4.5); HEMATOCRIT 36.2 % (35.4-49); HEMOGLOBIN 11.9 GM/dL (11.7-16.9); LYMPH % 16.7 % (8-40); MCH 29.8 pg (25.7-33.7); MCHC 32.9 g/dl (32.0-35.9); MEAN CELL VOLUME 90.3 fl (80-96); NEUT % 76.5 % (42.8-82.8); RDW 14.1 % (11.9-15.9); WHITE BLOOD COUNT 8.9 K/mm3 (4.0-10.0)
[2024-03-18 21:45] LABS: POTASSIUM 4.1 mmol/L (3.5-5.1)
[2024-03-18 21:46] LABS: CALCIUM 8.8 mg/dL (8.5-10.1)
[2024-03-18 21:47] LABS: ALBUMIN 3.3 g/dl (3.4-5.0); BLOOD UREA NITROGEN 11.2 mg/dL (7-18)
[2024-03-18 21:50] LABS: CREATININE 0.8 mg/dL (0.55-1.3)
[2024-03-18 21:52] LABS: BILIRUBIN,TOTAL 0.2 mg/dL (0.2-1)
[2024-03-18] MEDS: PIPERACILLIN/TAZOB 4.5 GM 4.5 GM in DEXTROSE 5%-WATER 100 ML IVPB ONE (21:59)
[2024-03-18 22:03] LABS: MEAN PLT VOLUME 9.4 fl (7.5-11.1); PLATELET COUNT 157 10^3/uL (134-434)
[2024-03-18 22:06] LABS: ERYTHROCYTE SEDIMENTATION RATE 14 mm/hr (0-20)
[2024-03-18 22:20] LABS: CHLORIDE 107 mmol/L (98-107); POTASSIUM 3.8 mmol/L (3.5-5.1); SODIUM 144 mmol/L (136-145)
[2024-03-18 22:21] LABS: CALCIUM 8.9 mg/dL (8.5-10.1)
[2024-03-18 22:22] LABS: ANION GAP 8 mmol/L (4-13); CO2 29 mmol/L (21-32); GLUCOSE,RANDOM 109 mg/dL (74-106)
[2024-03-18 22:25] LABS: CREATININE 0.8 mg/dL (0.55-1.3)
[2024-03-18] MEDS: VANCOMYCIN 1,000 MG in DEXTROSE 5%-WATER - 250 ML IVPB ONE (22:31)
[2024-03-18 23:06] LABS: OPIATES, URI NEGATIVE (NEGATIVE); URINE BENZODIAZEPINES NEGATIVE (NEGATIVE)
[2024-03-18 23:07] LABS: PHENCYCLIDINE,URINE NEGATIVE (NEGATIVE)
[2024-03-18 23:08] LABS: COCAINE, UR POSITIVE (NEGATIVE); METHADONE, UR POSITIVE (NEGATIVE); URINE AMPHETAMINES NEGATIVE (NEGATIVE); URINE BARBITURATES NEGATIVE (NEGATIVE)
[2024-03-19 00:47] VITALS: BMI 49.6
[2024-03-19] MEDS: VANCOMYCIN/WATER 2 GRAMS 2,000 MG/400 ML PIGGYBACK IVPB SCH (03:36)
[2024-03-19] MEDS: methaDONE HCL 40 MG DISPERSABLE TABLET PO ONE (05:39)
[2024-03-19] MEDS: GABAPENTIN 300 MG CAPSULE PO SCH (05:39)
[2024-03-19] MEDS ORDERED: methaDONE HCL 40 MG DISPERSABLE TABLET PO SCH (06:00)
[2024-03-19 08:56] LABS: HEMATOCRIT 34.5 % (35.4-49); HEMOGLOBIN 11.1 GM/dL (11.7-16.9); MCH 29.5 pg (25.7-33.7); MCHC 32.1 g/dl (32.0-35.9); MEAN CELL VOLUME 91.9 fl (80-96); MEAN PLT VOLUME 8.7 fl (7.5-11.1); PLATELET COUNT 162 10^3/uL (134-434); RBC 3.76 M/mm3 (4.00-5.60); RDW 13.8 % (11.9-15.9); WHITE BLOOD COUNT 8.7 K/mm3 (4.0-10.0)
[2024-03-19 08:57] LABS: POTASSIUM 3.7 mmol/L (3.5-5.1)
[2024-03-19 10:00] LABS: BILIRUBIN,TOTAL 0.6 mg/dL (0.2-1)
[2024-03-19 10:07] LABS: CALCIUM 8.3 mg/dL (8.5-10.1)
[2024-03-19] MEDS: BACLOFEN 10 MG TABLET (FP) PO SCH (10:07)
[2024-03-19] MEDS: ENOXAPARIN NA (PORCINE) 40 MG/0.4 ML DISP.SYRIN SQ SCH (10:07)
[2024-03-19] MEDS: ARIPiprazole 5 MG TABLET PO SCH (10:07)
[2024-03-19 10:09] LABS: ALBUMIN 2.8 g/dl (3.4-5.0); BLOOD UREA NITROGEN 7.8 mg/dL (7-18); MAGNESIUM 1.9 mg/dL (1.8-2.4)
[2024-03-19 10:12] LABS: CREATININE 0.7 mg/dL (0.55-1.3)
[2024-03-19 10:13] LABS: TOT PROT 6.2 g/dl (6.4-8.2)
[2024-03-19 11:37] LABS: HIV INTERPRETATION NEGATIVE (NEGATIVE)
[2024-03-19] MEDS: PIPERACILLIN/TAZOB 4.5 GM 4.5 GM/100 ML BAG IVPB SCH (13:06)
[2024-03-20] MEDS ORDERED: VANCOMYCIN/WATER 2 GRAMS 2,000 MG/400 ML PIGGYBACK IVPB SCH (03:00)
[2024-03-20] MEDS: methaDONE HCL 40 MG DISPERSABLE TABLET PO SCH (06:07)
[2024-03-20 09:01] LABS: BASO % 0.4 % (0-2.0); EOS % 2.7 % (0-4.5); HEMATOCRIT 37.2 % (35.4-49); HEMOGLOBIN 11.9 GM/dL (11.7-16.9); LYMPH % 26.8 % (8-40); MCH 29.2 pg (25.7-33.7); MCHC 32.1 g/dl (32.0-35.9); MEAN PLT VOLUME 8.7 fl (7.5-11.1); NEUT % 63.1 % (42.8-82.8); PLATELET COUNT 180 10^3/uL (134-434); RBC 4.08 M/mm3 (4.00-5.60); RDW 13.7 % (11.9-15.9); WHITE BLOOD COUNT 7.5 K/mm3 (4.0-10.0)
[2024-03-20 09:09] LABS: POTASSIUM 4.1 mmol/L (3.5-5.1)
[2024-03-20 09:11] LABS: BLOOD UREA NITROGEN 8.5 mg/dL (7-18); CALCIUM 8.9 mg/dL (8.5-10.1)
[2024-03-20 09:13] LABS: CREATININE 0.8 mg/dL (0.55-1.3)
[2024-03-20 09:16] LABS: BILIRUBIN,TOTAL 0.6 mg/dL (0.2-1); TOT PROT 6.8 g/dl (6.4-8.2)
[2024-03-21 14:22] VITALS: BP 123/94; PULSE 100; RESP 18; TEMP 98.1
== END 2024-03-21 14:50 | disposition left against medical advice (07) ==
LOC: JER 19:17 → JERBED 22:37 → J8W 03-19 00:38
PROVIDERS: ADMIT Student in an Organized Health Care Education/Training Program; ATTEND Internal Medicine
PROC: 0X950ZZ Drainage of Left Axilla, Open Approach (ICD-10-PCS; principal; 2024-03-18)
PROC: 3E023GC Introduction of Other Therapeutic Substance into Muscle, Percutaneous Approach (ICD-10-PCS; 2024-03-18)
PROC: 3E03329 Introduction of Other Anti-infective into Peripheral Vein, Percutaneous Approach (ICD-10-PCS; 2024-03-18)
DX: L02.414 Cutaneous abscess of left upper limb (principal); F11.90 Opioid use, unspecified, uncomplicated; F19.90 Other psychoactive substance use, unspecified, uncomplicated; I11.0 Hypertensive heart disease with heart failure; F31.9 Bipolar disorder, unspecified; D57.3 Sickle-cell trait; G89.29 Other chronic pain; E78.5 Hyperlipidemia, unspecified; M41.9 Scoliosis, unspecified; R00.0 Tachycardia, unspecified; K76.0 Fatty (change of) liver, not elsewhere classified; Z86.19 Personal history of other infectious and parasitic diseases; F17.200 Nicotine dependence, unspecified, uncomplicated
CPT/HCPCS: 10060; 36415; 73060-TC-LT-FY; 76882-TC-RT-FY; 80048; 80053; 80307; 83735; 84100; 85025; 85027; 85651; 86140; 87040; 87070; 87076; 87205; 87389; 93005; 93010; 96365; 96366; 96367; 96368; 96372; 97116-GP; 97161-GP; 99285-25; G0378; G0480; J0475

== ENCOUNTER 2024-12-02 01:28 | Observation (INO) | payer OTHER ==
[2024-12-02] MEDS ORDERED: KETOROLAC TROMETHAMINE 30 MG/1 ML VIAL ONE (02:09)
[2024-12-02] MEDS ORDERED: ACETAMINOPHEN 325 MG TABLET (FP) ONE (02:09)
[2024-12-02] MEDS: KETOROLAC TROMETHAMINE 30 MG/1 ML VIAL IM ONE (02:25)
[2024-12-02] MEDS: ACETAMINOPHEN 325 MG TABLET (FP) PO ONE (02:25)
[2024-12-02] MEDS ORDERED: METHOCARBAMOL 500 MG TABLET ONE (04:47)
[2024-12-02] MEDS: METHOCARBAMOL 500 MG TABLET PO ONE (04:50)
[2024-12-02] MEDS ORDERED: KETOROLAC TROMETHAMINE 15 MG/ML VIAL IVPUSH PRN (06:05)
[2024-12-02 06:42] LABS: MCHC 32.0 g/dl (32.3-36.5); MEAN CELL VOLUME 91.1 fl (79.0-92.2); MEAN PLT VOLUME 10.0 fl (9.4-12.4); RDW 14.9 % (12.2-16.1)
[2024-12-02 07:19] LABS: GLUCOSE,RANDOM 92.0 mg/dL (74-106)
[2024-12-02 07:20] LABS: TOT PROT 6.4 g/dl (6.4-8.2)
[2024-12-02 07:21] LABS: CO2 27.0 mmol/L (21-32)
[2024-12-02 07:22] LABS: ALK PHOS 84.0 U/L (40-150)
[2024-12-02 07:25] LABS: CREATININE 0.87 mg/dL (0.55-1.3); SGOT/AST 22.0 U/L (5-34)
[2024-12-02 08:01] LABS: SGPT/ALT 17.0 U/L (0-55)
[2024-12-02] MEDS ORDERED: GABAPENTIN 300 MG CAPSULE PO SCH (10:00)
[2024-12-02] MEDS: ACETAMINOPHEN 500 MG TABLET (FP) PO SCH (10:12)
[2024-12-02] MEDS: BACLOFEN 10 MG TABLET (FP) PO SCH (10:12)
[2024-12-02] MEDS: ENOXAPARIN NA (PORCINE) 40 MG/0.4 ML DISP.SYRIN SQ SCH (10:13)
[2024-12-02] MEDS: NAPROXEN 375 MG TABLET PO SCH (10:37)
[2024-12-02 11:43] VITALS: BMI 38.1
[2024-12-02] MEDS: GABAPENTIN 300 MG CAPSULE PO SCH (13:36)
[2024-12-02 18:27] LABS: HIV INTERPRETATION NEGATIVE (NEGATIVE)
[2024-12-02 19:58] LABS: HCV DIAGNOSTIC IN-HOUSE W/RFLX REACTIVE (NONREACTIVE)
[2024-12-02 21:51] VITALS: RESP 18
[2024-12-03 06:56] VITALS: BP 127/72; PULSE 55; TEMP 97.9
[2024-12-03 07:08] LABS: MCHC 31.4 g/dl (32.3-36.5); MEAN CELL VOLUME 92.1 fl (79.0-92.2); MEAN PLT VOLUME 10.5 fl (9.4-12.4); RDW 15.0 % (12.2-16.1)
[2024-12-03 07:33] LABS: GLUCOSE,RANDOM 80.0 mg/dL (74-106)
[2024-12-03 07:35] LABS: CO2 33.0 mmol/L (21-32)
[2024-12-03 07:39] LABS: CREATININE 0.75 mg/dL (0.55-1.3)
== END 2024-12-03 15:23 | disposition home or self-care (01) ==
LOC: JER 01:28 → JERBED 05:04 → J8W 08:24
PROVIDERS: ADMIT Hospitalist; ATTEND Internal Medicine
PROC: 3E023GC Introduction of Other Therapeutic Substance into Muscle, Percutaneous Approach (ICD-10-PCS; principal; 2024-12-02)
PROC: 3E0233Z Introduction of Anti-inflammatory into Muscle, Percutaneous Approach (ICD-10-PCS; 2024-12-02)
DX: M54.9 Dorsalgia, unspecified (principal); I11.0 Hypertensive heart disease with heart failure; I47.10 Supraventricular tachycardia, unspecified; M25.552 Pain in left hip; F19.99 Other psychoactive substance use, unspecified with unspecified psychoactive substance-induced disorder; W18.39XA Other fall on same level, initial encounter; Y93.89 Activity, other specified; F31.9 Bipolar disorder, unspecified; Y92.098 Other place in other non-institutional residence as the place of occurrence of the external cause; K76.0 Fatty (change of) liver, not elsewhere classified; E66.01 Morbid (severe) obesity due to excess calories; E78.5 Hyperlipidemia, unspecified; F41.8 Other specified anxiety disorders; Z86.19 Personal history of other infectious and parasitic diseases
CPT/HCPCS: 36415; 71045-TC-FY; 72100-TC-FY; 72131-TC; 72170-TC-FY; 72192-TC; 73521-TC-FY; 80048; 80053; 85025; 85027; 86803; 86850; 86900; 86901; 87389; 87522; 93005; 93010; 96372; 97116-GP; 97161-GP; 99285-25; G0378; J0475